=== PATIENT | female | born 2000 | race Caucasian/White ===

== ENCOUNTER 2023-04-03 17:45 | Day surgery (SDC) | payer OTHER ==
[2023-04-03 18:57] LABS: BASOPHILS PERCENT AUTO 0.2 % (0.0-1.0); EOSINOPHILS PERCENT AUTO 0.1 % (0.0-6.0); HEMATOCRIT 32.2 % (37.0-47.0); HEMOGLOBIN 10.9 gm/dl (12.0-16.0); IMMATURE GRAN PERCENT AUTO 0.8 % (0.0-0.4); LYMPHOCYTES ABSOLUTE AUTO 1.3 K/mm3 (1.0-4.8); LYMPHOCYTES PERCENT AUTO 10.7 % (24.0-44.0); MEAN CORPUSCULAR HEMOGLOBIN 29.8 pg (28.0-32.0); MEAN CORPUSCULAR HGB CONC 33.9 g/dl (32.0-36.0); MEAN PLATELET VOLUME 10.5 fl (9.4-12.3); MONOCYTES ABSOLUTE AUTO 0.6 K/mm3 (0.0-0.8); MONOCYTES PERCENT AUTO 4.6 % (0.0-8.0); NEUTROPHILS ABSOLUTE AUTO 10.3 K/mm3 (1.8-7.7); NEUTROPHILS PERCENT AUTO 83.6 % (41.0-71.0); PLATELET COUNT,PLT 273 K/mm3 (150-400); RED BLOOD CELL COUNT 3.66 M/mm3 (4.10-5.30)
[2023-04-03 19:42] LABS: A/G RATIO 0.9 (1-2); ALBUMIN 3.4 g/dl (3.4-5.0); BILIRUBIN TOTAL 0.6 mg/dL (0.2-1.0); CALCIUM 8.9 mg/dL (8.5-10.1); CREATININE 0.7 mg/dL (0.55-1.02); EST CRCL DRUG DOSING (CG) 111.51 mL/min
[2023-04-03] MEDS ORDERED: Sodium Chloride 0.9% 10 ML Syringe FLUSH PRN (19:50)
[2023-04-03] MEDS ORDERED: Rocuronium 50 MG/5 ML Vial ONE (19:57)
[2023-04-03] MEDS ORDERED: Lidocaine 1% 5 ML VIAL ONE (19:57)
[2023-04-03] MEDS ORDERED: Ondansetron 4 MG/2 ML SDV ONE (19:57)
[2023-04-03] MEDS ORDERED: Lactated Ringers 1,000 ML IV ONE (19:57)
[2023-04-03] MEDS ORDERED: fentaNYL 250 MCG/5 ML SDV ONE (19:57)
[2023-04-03] MEDS ORDERED: Propofol 200 MG/20 ML SDV ONE (19:57)
[2023-04-03] MEDS ORDERED: Midazolam 1 MG/ML 2 ML SDV ONE (19:57)
[2023-04-03] MEDS ORDERED: Succinylcholine 200 MG/10 ML MDV ONE (19:57)
[2023-04-03 20:14] LABS: CORONAVIRUS COVID-19 NAA NEGATIVE (NEGATIVE); INFLUENZA A NAA NEGATIVE (NEGATIVE); RESPIRATORY SYNCYTIAL VIR NAA NEGATIVE (NEGATIVE)
[2023-04-03] MEDS ORDERED: Ondansetron 4 MG/2 ML SDV IVPUSH ONE (20:15)
[2023-04-03] MEDS ORDERED: ceFAZolin 2 GM Vial ONE (20:16)
[2023-04-03] MEDS ORDERED: Lactated Ringers 1,000 ML ONE (20:34)
[2023-04-03] MEDS ORDERED: HYDROmorphone 0.5 MG/0.5 ML Syringe ONE (21:11)
[2023-04-03] MEDS ORDERED: Dexamethasone 4 MG/ML 5 ML MDV ONE (21:12)
[2023-04-03] MEDS ORDERED: fentaNYL 100 MCG/2 ML SDV IVPUSH PRN (21:26)
[2023-04-03] MEDS ORDERED: HYDROmorphone 0.5 MG/0.5 ML Syringe IVPUSH PRN (21:26)
[2023-04-03] MEDS ORDERED: Ondansetron 4 MG/2 ML SDV IVPUSH PRN (21:26)
[2023-04-03] MEDS ORDERED: Bupivacaine 0.5% 30 ML SDV ONE (21:33)
[2023-04-03] MEDS ORDERED: fentaNYL 100 MCG/2 ML SDV ONE (21:33)
[2023-04-03] MEDS ORDERED: Neostigmine Methylsulfate 10 MG/10 ML MDV ONE (21:43)
== END 2023-04-04 01:01 | disposition home or self-care (01) ==
LOC: JD.ED 17:45 → JD.SDS 20:37
PROVIDERS: ATTEND Obstetrics & Gynecology
DX: O00.101 Right tubal pregnancy without intrauterine pregnancy (principal); Z88.0 Allergy status to penicillin; Z20.822 Contact with and (suspected) exposure to COVID-19
CPT/HCPCS: 0241U; 36415; 59151; 76817; 80053; 84702; 85025; 86140; 86900; 86901; 96361; 96374; 99285; J0330; J0690; J1100; J1170; J2250; J2405; J2704; J2710; J3010; J3490; J7120; 00840; 99140